=== PATIENT | female | born 1990 | race African-American/Black ===

== ENCOUNTER 2017-01-14 23:19 | Emergency (ER) | payer BC ==
--- NOTE | ~2017-01-14 | CT71 ---
[facility] A [facility] of [facility] RADIOLOGY TEXT RESULTS PATIENT: ANTONY MORFIN LOCATION: [facility] : 86 UNIT #: [id number] AGE: [address]: Kenny Renner DO SEX: F ORDER DR: [id number] [place], [place] [address] [id number] MR#: [id number] Acc #: [id number] NAME: ANTONY MORFIN : 1990 SEX: F STUDY DATE/TIME: 01/15/2017 0:30 UNIT: GURMEET ROOM: STUDY DESCRIPTION: CT Head Wo Contrast Attending Physician: Kenny Renner D.O. Ordering Physician: Kenny Renner D.O. Primary Care Physician: Primary Care Physician No MEDICAL IMAGING REPORT This report is preliminary unless electronic signature is present EXAM CT scan of the head without contrast HISTORY Right-sided headache for a week. TECHNIQUE Axial noncontrast images were obtained from the skull base to the vertex. This CT exam was performed with one or more of the following radiation dose reduction techniques: automatic exposure control, adjustment of mA and/or kV according to patient size, and iterative reconstruction. FINDINGS Ventricular size and configuration are normal. There is no evidence of acute infarct or hemorrhage. There are no extraaxial fluid collections. No mass lesion or mass effect is seen. There are no skull fractures. IMPRESSION Normal noncontrast head CT. Dictated by... Ashok Acuña M.D. THIS IS AN ELECTRONICALLY VERIFIED REPORT Ashok Acuña M.D. at 01/15/2017 2:15 PM FEL/pcl TD: 01/15/2017 01:17 JOB #: [id number] [facility] A Service [facility] RADIOLOGY TEXT RESULTS PATIENT: ANTONY MORFIN LOCATION: [facility] : 86 UNIT #: [id number] AGE: [address]: Kenny Renner DO SEX: F ORDER DR: MEDICAL IMAGING REPORT Page 1 of 1 COPY
[2017-01-14 23:31] LABS: URINE SOURCE CLEAN CATCH
[2017-01-14 23:34] LABS: URINE APPEARANCE CLOUDY; URINE BILIRUBIN NEG (NEG); URINE BLOOD NEG (NEG); URINE COLOR YELLOW; URINE GLUCOSE NEG (NEG); URINE KETONE TRACE (NEG); URINE LEUKOCYTE ESTERASE NEG (NEG); URINE NITRATE NEG (NEG); URINE PROTEIN NEG (NEG); URINE SPECIFIC GRAVITY 1.027 (1.003-1.035)
[2017-01-14 23:35] LABS: BASOPHIL% 0.5 % (0-2.5); DIFF IND NO; EOSINOPHIL% 0.3 % (0.0-7.0); HEMATOCRIT 35.7 % (35.0-45.0); HEMOGLOBIN 11.3 gm/dL (12.0-16.0); LYMPHOCYTE# 1.7 X10e3 (1.0-3.5); LYMPHOCYTE% 18.8 % (17.0-45.0); MEAN CORPUSCULAR HEMOGLOBIN 26.8 PG (28-34); MEAN CORPUSCULAR HGB CONC 31.6 g/dL (30-36); MEAN PLATELET VOLUME 7.5 FL (6.5-11.5); MONOCYTE# 0.6 X10e3 (0-1.0); MONOCYTE% 6.6 % (3.0-12.0); NEUTROPHIL# 6.8 X10e3 (1.5-7.1); NEUTROPHIL% 73.8 % (40-75); PLATELET COUNT 310 X10e3 (140-420); RED CELL DISTRIBUTION WIDTH 15.9 % (11.0-15.5); WHITE BLOOD COUNT 9.3 X10e3 (4.0-10.5)
[2017-01-14 23:49] LABS: CULTURE INDICATED? NO
[2017-01-14 23:50] LABS: PARTIAL THROMBOPLASTIN TIME 23.7 SECONDS (23.5-31.3); PROTHROMBIN TIME (PATIENT) 10.3 SECONDS (9.6-11.5)
[2017-01-15 00:02] LABS: BUN/CREATININE RATIO 9.09; CALCIUM SERUM 9.7 mg/dL (8.4-10.2); CREATININE SERUM 1.1 mg/dL (0.6-1.4); GLOM FILT RATE Estimated 79.2 mL/min (>60); POTASSIUM 4.1 mmol/L (3.5-5.1)
== END 2017-01-15 01:22 | disposition home or self-care (01) ==
LOC: CED 23:19
PROVIDERS: Emergency Medicine
DX: J32.9 Chronic sinusitis, unspecified (principal); R42 Dizziness and giddiness; F17.200 Nicotine dependence, unspecified, uncomplicated
CPT/HCPCS: 36415; 70450; 80048; 81003; 84703; 85025; 85610; 85730; 96361; 96374; 96375; 99284; J1200; J2765